=== PATIENT | female | born 1990 | race Caucasian/White ===

== ENCOUNTER 2016-03-29 06:32 | Emergency (ER) | payer OTHER ==
[~2016-03-29] VITALS: Wt 52.0 kg
[~2016-03-29 06:32] MED LIST: OMEP40CA6 PO
[2016-03-29] MEDS ORDERED: ONDANSETRON 4 MG INJ IV STA ×2 (06:51→09:10)
[2016-03-29] MEDS ORDERED: SOD CHLORIDE 0.9% 1,000 ML IV STA (06:51)
[2016-03-29] MEDS ORDERED: morphine 4 MG/ML VIAL IV STA (06:51)
--- NOTE | 2016-03-29 07:01 | ERD ---
ER Documentation Chief Complaint Date/Time DATE: 03/29/16 TIME: 06:59 Chief Complaint ap for the past few days with nausea and vomiting. no diarrhea. HPI 25-year-old female with a history of gallstones comes to emergency room with epigastric abdominal pain for 5 days with nausea, vomiting. Her pain is severe in the epigastric region radiating to the right upper quadrant, she has had several episodes of nonbloody nonbilious emesis. She does not report any fevers or chills. She states that she was in [place] where she had a CAT scan done and was told that she had "gallbladder sludge". ROS All systems reviewed and are negative except as per history of present illness. Medications Home Meds Active Scripts Ondansetron (Ondansetron Odt) 4 Mg Tab.rapdis, 4 MG PO Q6H Y for NAUSEA AND/OR VOMITING, #15 TAB Prov:ROMELIA DELGADO PA-C 03/29/16 Hydrocodone/Acetaminophen ([place] 10-325 Tablet) 1 Each Tablet, 1 TAB PO Q6H Y for PAIN, #20 TAB Prov:ROMELIA DELGADO PA-C 03/29/16 Reported Medications Omeprazole* (Omeprazole*) 40 Mg Capsule.dr, 40 MG PO DAILY, #30 CAP 02/08/16 Allergies Allergies: Coded Allergies: No Known Drug Allergies (Verified Allergy, Unknown, 02/08/16) PMhx/Soc History of Surgery: Yes (eye sx.) Anesthesia Reaction: No Hx Neurological Disorder: No Hx Respiratory Disorders: No Hx Cardiac Disorders: Yes (chestpains) Hx Psychiatric Problems: Yes (mild depression) Hx Miscellaneous Medical Probl: No Hx Alcohol Use: Yes Hx Substance Use: Yes (marijuana) Hx Tobacco Use: Yes Physical Exam Vitals Vital Signs Date Time Temp Pulse Resp B/P Pulse Ox O2 Delivery O2 Flow Rate FiO2 03/29/16 06:36 98.4 68 21 120/73 98 Physical Exam General: Well-developed, well-nourished. The patient appears in no acute distress. HEENT: Head is normocephalic, atraumatic. No scleral icterus. Neck: Supple. Nontender. Lungs: Clear to auscultation. Normal air movement. Heart: Regular rate and rhythm. S1 and S2 are normal. No murmurs, gallops, or rubs. Abdomen: Soft, tender in the epigastric and right upper quadrant, nondistended. Bowel sounds are normoactive. No peritoneal signs or guarding Extremities: No clubbing or cyanosis. Normal pulses. Moving extremities x 4. No weakness. Neurologic: Alert and oriented 3. No focal deficits. Skin: Normal turgor. No rash or lesions. Result Diagram: 03/29/16 0715 03/29/16 0715 Results 24 hrs Laboratory Tests Test 03/29/16 07:15 Alanine Aminotransferase (ALT/SGPT) 28IU/L Albumin 4.3g/dl Albumin/Globulin Ratio 1.53 Alkaline Phosphatase 82IU/L Anion Gap 19 Aspartate Amino Transf (AST/SGOT) 23IU/L Basophils # 0.110^3/ul Basophils % 0.7% Blood Urea Nitrogen 8mg/dl Calcium Level 9.6mg/dl Carbon Dioxide Level 25mmol/L Chloride Level 104mmol/L Creatinine 0.75mg/dl Direct Bilirubin 0.00mg/dl Eosinophils # 0.110^3/ul Eosinophils % 1.7% Globulin 2.80g/dl Glucose Level 96mg/dl Hematocrit 40.2% Hemoglobin 13.4g/dl Indirect Bilirubin 0.7mg/dl Lipase 100U/L Lymphocytes # 2.810^3/ul Lymphocytes % 36.3% Mean Corpuscular Hemoglobin 31.6pg Mean Corpuscular Hemoglobin Concent 33.3g/dl Mean Corpuscular Volume 94.8fl Mean Platelet Volume 9.1fl Monocytes # 0.710^3/ul Monocytes % 8.5% Neutrophils # 4.110^3/ul Neutrophils % 52.8% Nucleated Red Blood Cells # 0.010^3/ul Nucleated Red Blood Cells % 0.0/100WBC Platelet Count 40036^3/UL Potassium Level 4.1mmol/L Red Blood Count 4.2310^6/ul Red Cell Distribution Width 12.8% Sodium Level 144mmol/L Total Bilirubin 0.7mg/dl Total Protein 7.1g/dl Urine Bacteria FEW Urine Bilirubin NEGATIVE Urine Clarity CLEAR Urine Color LT. YELLOW Urine Epithelial Cells MODERATE Urine Glucose NEGATIVE% Urine Hemoglobin 1+ Urine Ketones 40 Urine Leukocyte Esterase NEGATIVE Urine Microscopic RBC 0-2/HPF Urine Microscopic WBC 0-2/HPF Urine Nitrite NEGATIVE Urine Specific [place] 1.010 Urine Total Protein NEGATIVE Urine Urobilinogen 0.2 E.U./dL Urine pH 6.0 White Blood Count 7.710^3/ul Current Medications Medications (Trade) Dose Ordered Sig/Wil Route PRN Reason Start Time Stop Time Status Last Admin Dose Admin Sodium Chloride (NS) 1,000 ml @ 1,000 mls/hr Q1H STAT IV 03/29/16 06:51 03/29/16 07:50 DC 03/29/16 07:24 Morphine Sulfate (morphine) 4 mg ONCE STAT IV 03/29/16 06:51 03/29/16 06:52 DC 03/29/16 07:23 Ondansetron HCl (Zofran Inj) 4 mg ONCE STAT IV 03/29/16 06:51 03/29/16 06:52 DC 03/29/16 07:23 Famotidine (Pepcid Iv) 20 mg ONCE ONCE IV 03/29/16 08:00 03/29/16 08:01 DC 03/29/16 07:42 Diphenhydramine HCl 25 mg 25 mg ONCE ONCE IV 03/29/16 08:00 03/29/16 08:01 DC 03/29/16 07:42 Sodium Chloride (NS) 1,000 ml @ 1,000 mls/hr Q1H ONCE IV 03/29/16 08:30 03/29/16 09:29 03/29/16 08:41 Ondansetron HCl (Zofran Inj) 4 mg ONCE STAT IV 03/29/16 09:10 03/29/16 09:11 DC PROCEDURE: US Abdomen. CLINICAL INDICATION: abdominal pain TECHNIQUE: Multiple real-time images were acquired of the patient's right upper quadrant abdomen and retroperitoneum utilizing a high resolution transducer. COMPARISON: None FINDINGS: The liver demonstrates normal echogenicity. The liver is normal in size and no focal solid lesions are seen. The liver measures 14.7 cm in length. The portal vein is patent with normal direction of flow. No intrahepatic biliary dilatation is seen. No gallstones are identified within the gallbladder. There is a trace amount of sludge within the gallbladder. There is no pericholecystic fluid or gallbladder wall thickening. The common bile duct measures 3 mm in maximal dimension. The visualized portions of the pancreas are unremarkable. The tail of the pancreas is not seen. No free fluid is identified. The right kidney is normal in size, and demonstrate normal echogenicity and cortical thickness. The right kidney measures 9.5 cm in long dimension. There is no evidence of hydronephrosis. There are no kidney stones. RPTAT: AA IMPRESSION: Trace amount of sludge within the gallbladder. No evidence of gallbladder wall thickening or pericholecystic fluid. .Balwinder Cavazos MD, MD Date Time Electronically viewed and signed by .Balwinder Cavazos MD, MD on 03/29/2016 08: 27 .S/ Procedures/MDM ED course: Labs and urine were obtained, showed an IV line established and I was given morphine 4 mg and Zofran 4 mg IV. 1 L of normal saline administered. MDM: 25-year-old female comes to emergency room for epigastric abdominal pain, ultrasound shows gallbladder sludge however no pericholecystic fluid or gallbladder wall thickening. She has a normal white count. AST and ALT were mildly elevated however lipase is normal, there is no evidence of choledocholithiasis or associated pancreatitis. As she is aware of her gallbladder sludge, I have counseled patient on dietary changes, she also was advised to follow-up with her primary care physician shortly to get a referral to see a general surgeon. Discharge instructions also show referral information. No evidence of acute hepatobiliary disease, patient is appropriate for discharge. The case was reviewed and discussed with Dr. Mejia who agrees with the plan of care including labs, treatment, and advanced imaging as appropriate. Departure Diagnosis: Primary Impression: Gallbladder sludge Condition: ROMELIA Miranda PA-C Mar 29, 2016 07:00
[2016-03-29 07:33] LABS: ADD UMIC YES; URINE BILIRUBIN (Dip) NEGATIVE (NEGATIVE); URINE BLOOD (Dip) 1+ (NEGATIVE); URINE COLOR LT. YELLOW (YELLOW); URINE GLUCOSE (Dip) NEGATIVE (NEGATIVE); URINE KETONES (Dip) 40 (NEGATIVE); URINE LEUKOCYTE ESTERASE (Dip) NEGATIVE (NEGATIVE); URINE NITRITE (Dip) NEGATIVE (NEGATIVE); URINE TOTAL PROTEIN (Dip) NEGATIVE (NEGATIVE); URINE UROBILINOGEN (Dip) 0.2 E.U./dL (0.1-1.0)
[2016-03-29 07:40] LABS: ALBUMIN 4.3 g/dl (3.3-4.9)
[2016-03-29 07:41] LABS: POTASSIUM 4.1 mmol/L (3.5-5.1)
[2016-03-29 07:43] LABS: ALBUMIN/GLOBULIN RATIO 1.53; BILIRUBIN,INDIRECT 0.7 mg/dl (0-1.1); BILIRUBIN,TOTAL 0.7 mg/dl (0.2-1.3); CREATININE 0.75 mg/dl (0.44-1.00); TOTAL PROTEIN 7.1 g/dl (6.1-8.1)
[2016-03-29 07:44] LABS: CALCIUM 9.6 mg/dl (8.4-10.2)
[2016-03-29] MEDS ORDERED: FAMOTIDINE 20 MG INJ IV ONE (08:00)
[2016-03-29] MEDS ORDERED: DIPHENHYDRAMINE 50 MG INJ IV ONE (08:00)
[2016-03-29 08:02] LABS: BACTERIA,URINE FEW; URINE RBCS 0-2 /HPF (0)
--- NOTE | 2016-03-29 08:28 | RADRPT ---
PROCEDURE: US Abdomen. CLINICAL INDICATION: abdominal pain TECHNIQUE: Multiple real-time images were acquired of the patient's right upper quadrant abdomen a nd retroperitoneum utilizing a high resolution transducer. COMPARISON: None FINDINGS: The liver demonstrates normal echogenicity. The liver is normal in size and no focal solid lesions are seen. The liver measures 14.7 cm in length. The portal vein is patent with normal direction of f low. No intrahepatic biliary dilatation is seen. No gallstones are identified within the gallbladder. There is a trace amount of sludge within the g allbladder. There is no pericholecystic fluid or gallbladder wall thickening. The common bile duct measures 3 mm in maximal dimension. The visualized portions of the pancreas are unremarkable. The tail of the pancreas is not seen. No free fluid is identified. The right kidney is normal in size, and demonstrate normal echogenicity and cortical thickness. The right kidney measures 9.5 cm in long dimension. There is no evidence of hydronephrosis. There are no kidney stones. RPTAT: AA IMPRESSION: Trace amount of sludge within the gallbladder. No evidence of gallbladder wall thickening or perich olecystic fluid. .Balwinder Cavazos MD, Date Time Electronically viewed and signed by .Balwinder Cavazos MD, on 03/29/2016 08:27 .S/
[2016-03-29] MEDS ORDERED: SOD CHLORIDE 0.9% 1,000 ML IV ONE (08:30)
[2016-03-29 08:32] LABS: BASOPHIL # 0.1 10^3/ul (0.0-0.1); BASOPHILS % 0.7 % (0.0-2.0); EOSINOPHILS # 0.1 10^3/ul (0.0-0.5); EOSINOPHILS % 1.7 % (0.0-7.0); HEMATOCRIT 40.2 % (37.0-47.0); HEMOGLOBIN 13.4 g/dl (12.0-16.0); LYMPHOCYTES # 2.8 10^3/ul (0.8-2.9); LYMPHOCYTES % 36.3 % (15.0-51.0); MEAN CORPUSCULAR HEMOGLOBIN 31.6 pg (29.0-33.0); MEAN CORPUSCULAR HGB CONC 33.3 g/dl (32.0-37.0); MEAN CORPUSCULAR VOLUME 94.8 fl (82.0-101.0); MEAN PLATELET VOLUME 9.1 fl (7.4-10.4); MONOCYTE # 0.7 10^3/ul (0.3-0.9); MONOCYTES % 8.5 % (0.0-11.0); NEUTROPHIL # 4.1 10^3/ul (1.6-7.5); NEUTROPHILS % 52.8 % (39.0-77.0); PLATELET COUNT 233 10^3/UL (140-440); RED BLOOD COUNT 4.23 10^6/ul (4.20-5.40); RED CELL DISTRIBUTION WIDTH 12.8 % (11.5-14.5); UNCORRECTED WBC 7.7 10^3/ul (4.8-10.8); WHITE BLOOD COUNT 7.7 10^3/ul (4.8-10.8)
[2016-03-29 08:34] LABS: CONDITION 1
[2016-03-29] MEDS ORDERED: ONDA4TAB14 PO (09:07)
[2016-03-29] MEDS ORDERED: HYDR-902 PO (09:07)
[2016-03-29] MEDS ORDERED: KETOROLAC 30 MG INJ IV STA (09:36)
[2016-03-29 09:58] VITALS: BP 136/87; PULSE 58; RESP 20; TEMP 98.3
== END 2016-03-29 10:02 | disposition home or self-care (01) ==
LOC: FTE 06:32
DX: K82.8 Other specified diseases of gallbladder (principal); R11.2 Nausea with vomiting, unspecified; Z87.891 Personal history of nicotine dependence
CPT/HCPCS: 76705; 80053; 81001; 81003; 83690; 85025; J1200; J1885; J2270; J2405; J7030; Z7610; 36415; 96374; 96375; 96376